=== PATIENT | male | born 1980 | race Caucasian/White ===

== ENCOUNTER 2017-05-09 15:53 | Inpatient (IN) | payer OTHER, BC ==
[~2017-05-09] VITALS: Ht 177.8 cm; Wt 93.7 kg
[2017-05-09 16:19] LABS: BASOPHIL (%) 0.4 % (0-1); BASOPHIL COUNT 0.1 K/uL (0-0.1); EOSINOPHIL (%) 0.1 % (0-5); HEMATOCRIT 37.4 % (38.0-50.0); IMMATURE GRANULOCYTE (%) 2.4 % (0.0-0.7); LYMPHOCYTE (%) 8.9 % (15-42); LYMPHOCYTE COUNT 1.4 K/uL (1.0-2.8); MCH 28.3 PG (29.0-34.0); MCHC 34.8 G/DL (30.0-36.0); MCV 81.3 FL (86-99); MONOCYTE (%) 15.1 % (3-12); MONOCYTE COUNT 2.4 K/uL (0-0.8); NEUTROPHIL (%) 73.1 % (45-76); NEUTROPHIL COUNT 11.8 K/uL (1.8-6.4); PLATELET COUNT 269 K/uL (156-360); RBC DIS.WIDTH-CV 13.4 % (11.8-14.6); RBC DIS.WIDTH-SD 39.7 % (39-53); WHITE BLOOD COUNT 16.1 K/uL (4.1-10.2)
[2017-05-09 16:29] LABS: CHLORIDE 99 mEq/L (99-109); POTASSIUM 3.5 mEq/L (3.7-5.4); SODIUM 139 mEq/L (136-147)
[2017-05-09 16:30] LABS: GLUCOSE 95 mg/dL (70-99)
[2017-05-09] MEDS ORDERED: ONE DAILY1 EAC3 PO (16:30)
[2017-05-09] MEDS ORDERED: ADVIL200 MG PO (16:31)
[2017-05-09] MEDS ORDERED: SINUS PE DECONG10 MG PO (16:32)
[2017-05-09 16:34] LABS: CREATININE 0.7 mg/dL (0.6-1.3); GFR ESTIMATE (CALCULATED) > 59 mL/min/ (58.99-99999)
[2017-05-09 16:35] LABS: UREA NITROGEN (BUN) 6 mg/dL (9-23)
[2017-05-09 18:40] LABS: ALBUMIN 3.1 g/dL (3.2-4.8)
[2017-05-09 18:43] LABS: TOTAL PROTEIN 7.1 g/dL (6.4-8.3)
[2017-05-09 18:45] LABS: TOTAL BILIRUBIN 1.2 mg/dL (0.0-1.0)
[2017-05-09 18:46] LABS: ALKALINE PHOSPHATASE 241 IU/L (3-129)
[2017-05-09 18:48] LABS: AST (GOT) 31 IU/L (2-34); DIRECT BILIRUBIN 0.9 mg/dL (0.0-0.3)
[2017-05-09 18:49] LABS: ALT (GPT) 75 IU/L (3-49)
[2017-05-09 19:49] VITALS: BP 143/78
[2017-05-10 00:21] VITALS: BP 136/75
[2017-05-10 07:03] LABS: CHLORIDE 101 MEQ/L (99-109); CREATININE 0.7 MG/DL (0.6-1.3); GFR ESTIMATE (CALCULATED) > 59 mL/min/ (58.99-99999); GLUCOSE 114 mg/dL (70-99); POTASSIUM 3.6 MEQ/L (3.7-5.4); SODIUM 136 MEQ/L (136-147); UREA NITROGEN (BUN) 9 mg/dL (9-23)
[2017-05-10 07:11] LABS: BASOPHIL (%) 0.1 % (0-1); EOSINOPHIL (%) 0.1 % (0-5); HEMATOCRIT 32.6 % (38.0-50.0); HEMOGLOBIN 11.3 G/DL (12.5-16.6); IMMATURE GRANULOCYTE (%) 3.4 % (0.0-0.7); LYMPHOCYTE (%) 9.3 % (15-42); LYMPHOCYTE COUNT 1.4 K/uL (1.0-2.8); MCH 28.4 PG (29.0-34.0); MCHC 34.7 G/DL (30.0-36.0); MCV 81.9 FL (86-99); MONOCYTE (%) 13.5 % (3-12); NEUTROPHIL (%) 73.6 % (45-76); PLATELET COUNT 290 K/uL (156-360); RBC DIS.WIDTH-CV 13.3 % (11.8-14.6); RBC DIS.WIDTH-SD 40.1 % (39-53); RED BLOOD COUNT 3.98 M/uL (4.00-5.50)
[2017-05-10 08:26] VITALS: BP 128/73
[2017-05-10 12:21] LABS: INTER. NORMALIZED RATIO 1.3
[2017-05-10 12:24] LABS: PTT 26.1 SEC (25-37)
[2017-05-10 15:24] LABS: TYPE OF FLUID PLEURAL
[2017-05-10 16:12] LABS: APPEARANCE HAZY/YELLOW; BODY FLUID RBC'S 1000 /MM^3 (0-100); BODY FLUID WBC'S 1103 /MM^3 (0-500)
[2017-05-10 16:13] LABS: BODY FLUID EOSINOPHILS 0 % (0-25); MONONUCLEAR WBC'S 6 %; POLYNUCLEAR WBC'S 94 % (0-25)
[2017-05-10 16:22] LABS: BODY FLUID GLUCOSE 36 MG/DL; BODY FLUID LDH 1589 IU/L
[2017-05-10 16:25] VITALS: BP 124/74
[2017-05-10 17:29] LABS: APPEARANCE CLEAR ((CLEAR)); BILIRUBIN NEGATIVE; BLOOD NEGATIVE; COLOR YELLOW ((YELLOW)); GLUCOSE (STRIP) NEGATIVE; KETONES NEGATIVE; LEUKOCYTES NEGATIVE; NITRITE NEGATIVE; PROTEIN (STRIP) NEGATIVE; SPECIFIC GRAVITY 1.015 (1.000-1.030); UCUL ADDED? NO
[2017-05-10 17:58] LABS: BENZODIAZEPINES, URINE SCREEN Negative (200 ng/mL)
[2017-05-10 23:39] VITALS: BP 116/77
[2017-05-11 06:25] LABS: BASOPHIL (%) 0.3 % (0-1); EOSINOPHIL (%) 0.1 % (0-5); HEMATOCRIT 33.8 % (38.0-50.0); HEMOGLOBIN 11.5 G/DL (12.5-16.6); LYMPHOCYTE (%) 13.6 % (15-42); LYMPHOCYTE COUNT 1.8 K/uL (1.0-2.8); MCH 28.5 PG (29.0-34.0); MCV 83.9 FL (86-99); MONOCYTE (%) 12.7 % (3-12); MONOCYTE COUNT 1.7 K/uL (0-0.8); NEUTROPHIL (%) 69.3 % (45-76); NEUTROPHIL COUNT 9.4 K/uL (1.8-6.4); PLATELET COUNT 261 K/uL (156-360); RBC DIS.WIDTH-CV 13.6 % (11.8-14.6); RED BLOOD COUNT 4.03 M/uL (4.00-5.50); WHITE BLOOD COUNT 13.5 K/uL (4.1-10.2)
[2017-05-11 06:53] LABS: CHLORIDE 108 MEQ/L (99-109); CREATININE 0.7 MG/DL (0.6-1.3); GFR ESTIMATE (CALCULATED) > 59 mL/min/ (58.99-99999); GLUCOSE 94 mg/dL (70-99); POTASSIUM 4.2 MEQ/L (3.7-5.4); SODIUM 140 MEQ/L (136-147); UREA NITROGEN (BUN) 11 mg/dL (9-23)
[2017-05-11 07:32] VITALS: BP 129/84
[2017-05-11 17:01] VITALS: BP 130/78
[2017-05-12 01:51] VITALS: BP 143/79
[2017-05-12 06:31] LABS: HEMATOCRIT 31.2 % (38.0-50.0); HEMOGLOBIN 10.4 G/DL (12.5-16.6); MCH 27.5 PG (29.0-34.0); MCHC 33.3 G/DL (30.0-36.0); MCV 82.5 FL (86-99); PLATELET COUNT 280 K/uL (156-360); RBC DIS.WIDTH-CV 13.6 % (11.8-14.6); RBC DIS.WIDTH-SD 40.9 % (39-53); RED BLOOD COUNT 3.78 M/uL (4.00-5.50); WHITE BLOOD COUNT 15.1 K/uL (4.1-10.2)
[2017-05-12 08:00] VITALS: BP 140/74
[2017-05-12 16:00] VITALS: BP 132/77
[2017-05-12 23:52] VITALS: BP 137/78
[2017-05-13 06:42] LABS: HEMATOCRIT 31.5 % (38.0-50.0); HEMOGLOBIN 10.7 G/DL (12.5-16.6); MCH 28.2 PG (29.0-34.0); MCV 82.9 FL (86-99); PLATELET COUNT 285 K/uL (156-360); RBC DIS.WIDTH-CV 13.4 % (11.8-14.6); RBC DIS.WIDTH-SD 40.6 % (39-53); WHITE BLOOD COUNT 15.6 K/uL (4.1-10.2)
[2017-05-13 06:48] LABS: INTER. NORMALIZED RATIO 1.3
[2017-05-13 07:58] VITALS: BP 135/80
[2017-05-13 16:00] VITALS: BP 130/74
[2017-05-14 00:23] VITALS: BP 135/83
[2017-05-14 06:54] LABS: HEMATOCRIT 31.4 % (38.0-50.0); HEMOGLOBIN 10.4 G/DL (12.5-16.6); MCH 27.6 PG (29.0-34.0); MCHC 33.1 G/DL (30.0-36.0); MCV 83.3 FL (86-99); PLATELET COUNT 319 K/uL (156-360); RBC DIS.WIDTH-CV 13.6 % (11.8-14.6); RBC DIS.WIDTH-SD 40.9 % (39-53); RED BLOOD COUNT 3.77 M/uL (4.00-5.50); WHITE BLOOD COUNT 16.6 K/uL (4.1-10.2)
[2017-05-14 07:36] VITALS: BP 123/75
[2017-05-14 15:42] VITALS: BP 128/72
[2017-05-15] VITALS: BP 140/82
[2017-05-15 07:40] LABS: HEMATOCRIT 32.6 % (38.0-50.0); HEMOGLOBIN 10.8 G/DL (12.5-16.6); MCH 27.6 PG (29.0-34.0); MCHC 33.1 G/DL (30.0-36.0); MCV 83.4 FL (86-99); PLATELET COUNT 363 K/uL (156-360); RBC DIS.WIDTH-CV 13.6 % (11.8-14.6); RBC DIS.WIDTH-SD 41.4 % (39-53); RED BLOOD COUNT 3.91 M/uL (4.00-5.50); WHITE BLOOD COUNT 14.7 K/uL (4.1-10.2)
[2017-05-15 08:00] VITALS: BP 136/83
[2017-05-15 16:33] VITALS: BP 126/73
[2017-05-15 16:52] VITALS: BP 126/73
[2017-05-16 07:34] VITALS: BP 123/72
[2017-05-16 13:41] VITALS: BP 116/70
[2017-05-17 00:12] VITALS: BP 111/62
[2017-05-17 05:30] LABS: HEMOGLOBIN 10.4 G/DL (12.5-16.6); MCH 27.7 PG (29.0-34.0); MCHC 32.5 G/DL (30.0-36.0); MCV 85.1 FL (86-99); RBC DIS.WIDTH-CV 13.3 % (11.8-14.6); RED BLOOD COUNT 3.76 M/uL (4.00-5.50); WHITE BLOOD COUNT 16.9 K/uL (4.1-10.2)
[2017-05-17 05:33] LABS: PLATELET COUNT 582 K/uL (156-360)
[2017-05-17 06:09] LABS: CREATININE 0.8 MG/DL (0.6-1.3); GFR ESTIMATE (CALCULATED) > 59 mL/min/ (58.99-99999)
[2017-05-17 06:14] LABS: CHLORIDE 102 MEQ/L (99-109); CREATININE 0.8 MG/DL (0.6-1.3); GFR ESTIMATE (CALCULATED) > 59 mL/min/ (58.99-99999); GLUCOSE 112 mg/dL (70-99); POTASSIUM 5.2 MEQ/L (3.7-5.4); SODIUM 134 MEQ/L (136-147); UREA NITROGEN (BUN) 12 mg/dL (9-23)
[2017-05-17 08:57] VITALS: BP 115/65
[2017-05-17 16:01] VITALS: BP 111/61
[2017-05-18 00:05] VITALS: BP 105/64
[2017-05-18 06:50] LABS: HEMOGLOBIN 9.9 G/DL (12.5-16.6); MCH 28.4 PG (29.0-34.0); PLATELET COUNT 575 K/uL (156-360); RBC DIS.WIDTH-CV 13.8 % (11.8-14.6); RED BLOOD COUNT 3.49 M/uL (4.00-5.50); WHITE BLOOD COUNT 11.2 K/uL (4.1-10.2)
[2017-05-18 07:37] VITALS: BP 128/75
[2017-05-18 15:40] VITALS: BP 119/64
[2017-05-18 23:31] VITALS: BP 130/69
[2017-05-19 08:02] VITALS: BP 132/70
[2017-05-19 16:00] VITALS: BP 124/59
[2017-05-19 23:20] VITALS: BP 126/60
[2017-05-20 07:34] VITALS: BP 127/79
[2017-05-20] MEDS ORDERED: AMOX TR-K CLV1 EAC4 PO (10:35)
[2017-05-20] MEDS ORDERED: TORADOL10 MG PO (11:29)
[2017-05-20 16:06] VITALS: BP 131/71
== END 2017-05-20 18:20 | disposition home or self-care (01) | DRG 167 ==
LOC: EME 15:53 → EDOF 18:09 → 5SOUTH 18:09 → ENRESERV 18:10 → EDOF 19:36 → 5SOUTH 19:40
PROVIDERS: Emergency Medicine Emergency Medical Services; Hospitalist; Internal Medicine; Nurse Practitioner Adult Health; Physician Assistant Medical; Surgery; Thoracic Surgery (Cardiothoracic Vascular Surgery)
DX: J86.9 Pyothorax without fistula (principal); J90 Pleural effusion, not elsewhere classified; J98.11 Atelectasis; J98.19 Other pulmonary collapse; E87.6 Hypokalemia; J06.9 Acute upper respiratory infection, unspecified; R91.1 Solitary pulmonary nodule
CPT/HCPCS: 32555; 71045; 71046; 71250; 80048; 80076; 80202; 80306 90; 81003; 82565; 82945; 83605; 83615 91; 84145 90; 84157; 85025; 85027; 85610; 85730; 86140; 87040; 87070; 87075; 87205; 87449; 87502; 87641; 88108; 88305; 88312; 89051; 94010; 94640; 94640 76; 99202; 99281; 99285; J0131; J0295; J0456; J1100; J1644; J1650; J1885; J2250; J2405; J3010; J3370; J7030; J7050; J7120